=== PATIENT | female | born 1960 | race African-American/Black ===

== ENCOUNTER 2018-09-23 17:30 | Emergency (ER) | payer MEDICAID ==
[~2018-09-23] VITALS: Ht 162.6 cm; Wt 63.6 kg
[2018-09-23 17:32] VITALS: BP 111/75
[2018-09-23 18:25] LABS: ALBUMIN 3.5 g/dL (3.4-5.0); ANION GAP 5 mmol/L (5-15); CALCIUM 9.4 mg/dL (8.5-10.1); CHLORIDE 110 mmol/L (98-107); CREATININE 0.74 mg/dL (0.55-1.02)
[2018-09-23 18:26] LABS: BASOPHILS # (AUTO) 0.01 x10^3/uL (0-0.1); BASOPHILS % (AUTO) 0 % (0-1); EOSINOPHILS % (AUTO) 2 % (1-7); LYMPHOCYTES # (AUTO) 2.92 x10^3/uL (1-3.4); LYMPHOCYTES % (AUTO) 45 % (22-44); MD NO; MEAN CORPUSCULAR HEMOGLOBIN 31.6 pg (27.0-34.8); MEAN CORPUSCULAR HGB CONC 32.6 g/dL (32.4-35.8); MEAN CORPUSCULAR VOLUME 96.9 fL (80-100); MONOCYTES # (AUTO) 0.45 x10^3/uL (0.2-0.8); MONOCYTES % (AUTO) 7 % (2-9); NEUTROPHILS # (AUTO) 3.07 x10^3/uL (1.8-6.8); NEUTROPHILS % (AUTO) 47 % (42-75); PLATELET COUNT 215 x10^3/uL (130-400); RED BLOOD COUNT 4.44 x10^6/uL (3.82-5.3)
== END 2018-09-23 19:49 | disposition home or self-care (01) ==
LOC: ED 19:30
DX: R51 Headache (principal); T43.595A Adverse effect of other antipsychotics and neuroleptics, initial encounter; R42 Dizziness and giddiness; Y92.89 Other specified places as the place of occurrence of the external cause
CPT/HCPCS: 36415; 70450; 80048; 82040; 85025; 93005; 99284

== ENCOUNTER 2019-08-26 14:19 | Emergency (ER) | payer MEDICAID ==
[~2019-08-26] VITALS: Ht 157.5 cm; Wt 70.7 kg
[2019-08-26 14:36] VITALS: BP 156/86
== END 2019-08-26 14:49 | disposition home or self-care (01) ==
LOC: ED 14:43
DX: L24.0 Irritant contact dermatitis due to detergents (principal); L01.01 Non-bullous impetigo
CPT/HCPCS: 99283

== ENCOUNTER 2020-03-08 12:19 | Emergency (ER) | payer MEDICAID ==
[~2020-03-08] VITALS: Ht 157.5 cm; Wt 72.0 kg
[2020-03-08] MEDS ORDERED: MAALOX/HYOSCYAMINE/LIDOCAINE 45 ML BTL PO ONE (12:30)
--- NOTE | 2020-03-08 12:30 | NUR ---
PT BIB EMS FOR EPIGASTRIC PAIN WHICH SHE DESCRIBES BURNING. PT HAS HX OF ULCERS AND GERD. PT RESTING IN [facility]. CONNECTED TO MONITORING EQUIPMENT
[2020-03-08] MEDS ORDERED: MAALOX/HYOSCYAMINE/LIDOCAINE 45 ML BTL ONE (12:34)
[2020-03-08 12:46] VITALS: BP 137/85
--- NOTE | 2020-03-08 12:46 | NUR ---
LAB AT BEDSIDE
[2020-03-08 13:02] LABS: BASOPHILS % (AUTO) 0 % (0-1); EOSINOPHILS % (AUTO) 1 % (1-7); LYMPHOCYTES % (AUTO) 39 % (22-44); MEAN CORPUSCULAR HEMOGLOBIN 31.9 pg (27.0-34.8); MEAN CORPUSCULAR HGB CONC 33.4 g/dL (32.4-35.8); MEAN PLATELET VOLUME 9.1 fL (7.4-10.4); MONOCYTES % (AUTO) 8 % (2-9); NEUTROPHILS % (AUTO) 51 % (42-75); PLATELET COUNT 223 x10^3/uL (130-400); RED BLOOD COUNT 4.44 x10^6/uL (3.82-5.3); RED CELL DISTRIBUTION WIDTH 12.5 % (9.6-15.2)
[2020-03-08 13:05] LABS: MD NO
[2020-03-08 13:13] LABS: ALBUMIN 3.5 g/dL (3.4-5.0); ANION GAP 3 mmol/L (5-15); CHLORIDE 109 mmol/L (98-107)
[2020-03-08 13:17] LABS: ALANINE AMINOTRANSFERASE 20 U/L (12-78); ALKALINE PHOSPHATASE 78 U/L (45-117); BILIRUBIN,TOTAL 0.5 mg/dL (0.2-1.0); CREATININE 0.73 mg/dL (0.55-1.02); TOTAL PROTEIN 7.4 g/dL (6.4-8.2)
--- NOTE | 2020-03-08 13:26 | NUR ---
PT DRESSED STATING SHE NEEDS TO LEAVE. PT STATES HE GRANDKIDS WERE DROPPED OFF AT HER HOUSE WITHOUT CHECKING TO MAKE SURE SHE WAS HOME AND THEY ARE WAITING OUTSIDE FOR HER. PT STATES IF SHE FEELS WORSE SHE WILL RETURN TO THE ED. PRESS MANAGER AWARE OF PT. LEAVING WITHOUT DISCHARGE INSTRUCTIONS DUE TO FAMILY EMERGENCY. PT AMBULATED TO DISCHAGE WITH STEADY GAIT.
== END 2020-03-08 13:31 | disposition home or self-care (01) ==
LOC: ED 13:15
DX: K29.20 Alcoholic gastritis without bleeding (principal); F10.10 Alcohol abuse, uncomplicated; F17.210 Nicotine dependence, cigarettes, uncomplicated; I10 Essential (primary) hypertension; Y90.0 Blood alcohol level of less than 20 mg/100 ml
CPT/HCPCS: 36415; 80053; 83690; 85025; 99406